=== PATIENT | male | born 1990 | race African-American/Black ===

== ENCOUNTER 2018-04-30 01:35 | Emergency (ER) | payer MEDICARE, MEDICAID ==
[~2018-04-30] VITALS: Ht 190.5 cm; Wt 88.5 kg
[2018-04-30] MEDS ORDERED: CLONAZEPAM 1 MG1 M1 PO (01:48)
[2018-04-30] MEDS ORDERED: METFORMIN HCL500 MG PO ×2 (01:49→04:51)
[2018-04-30] MEDS ORDERED: SERTRALINE HCL50 MG PO (01:49)
[2018-04-30] MEDS ORDERED: SEROQUEL 50 MG50 MG PO (01:49)
[2018-04-30] MEDS ORDERED: VITAMIN D1000 UNI1 PO (01:50)
[2018-04-30] MEDS ORDERED: PAXIL10 MG PO (01:50)
[2018-04-30 02:27] LABS: ABSOLUTE EOSINOPHILS 0.1 thou/uL (0.0-0.7); ABSOLUTE LYMPHOCYTES 1.1 thou/uL (0.8-5.3); ABSOLUTE MONOCYTES 0.4 thou/uL (0.0-1.2); ABSOLUTE NEUTROPHILS 1.8 thou/uL (1.6-8.1); BASOPHILS 1.2 %; EOSINOPHILS 4.1 %; HEMATOCRIT 36.7 % (42.0-52.0); HEMOGLOBIN 11.8 gm/dL (14.0-18.0); LYMPHOCYTES 32.2 %; MCH 26.2 pg (26.0-34.0); MCHC 32.1 g/dL (28.0-37.0); MCV 81.7 fL (80.0-100.0); MPV 8.3 fl. (7.2-11.1); NUCLEATED RBCS 0 /100WBC; PLATELET COUNT* 255 thou/uL (150-400); POLYS 51.5 %; RBC 4.48 mil/uL (4.50-6.00); RDW-CV 18.6 % (10.5-14.5); WBC 3.5 thou/uL (4.0-11.0)
[2018-04-30 02:37] LABS: URINE BILIRUBIN NEGATIVE (Negative); URINE BLOOD NEGATIVE (Negative); URINE CLARITY CLEAR; URINE COLOR YELLOW; URINE GLUCOSE-RANDOM 3+ (Negative); URINE KETONES NEGATIVE (Negative); URINE LEUKOCYTES-REFLEX NEGATIVE (Negative); URINE NITRITE-REFLEX NEGATIVE (Negative); URINE PROTEIN NEGATIVE (Negative); URINE SPECIFIC GRAVITY <= 1.005 (1.005-1.030); URINE UROBILINOGEN 0.2 E.U./dl (0.2-1.0)
[2018-04-30 02:39] LABS: CALCIUM 8.9 mg/dL (8.5-10.1); CREATININE 1.1 mg/dL (0.6-1.3)
[2018-04-30 05:08] VITALS: BP 146/93
== END 2018-04-30 05:08 | disposition home or self-care (01) ==
LOC: M.ERS 01:35
PROVIDERS: Emergency Medicine
DX: S30.1XXA Contusion of abdominal wall, initial encounter (principal); E11.65 Type 2 diabetes mellitus with hyperglycemia; F10.129 Alcohol abuse with intoxication, unspecified; Y90.7 Blood alcohol level of 200-239 mg/100 ml; F31.9 Bipolar disorder, unspecified; F41.9 Anxiety disorder, unspecified; W18.39XA Other fall on same level, initial encounter; Y93.89 Activity, other specified; Y92.89 Other specified places as the place of occurrence of the external cause; Y99.8 Other external cause status